=== PATIENT | female | born 1985 | race Asian ===

== ENCOUNTER 2016-07-07 15:09 | Emergency (ER) | payer OTHER ==
[~2016-07-07] VITALS: Ht 180.3 cm; Wt 81.6 kg
== END 2016-07-07 16:32 | disposition home or self-care (01) ==
LOC: ED 15:09
DX: M54.5 Low back pain (principal); G89.29 Other chronic pain
CPT/HCPCS: 99282

== ENCOUNTER 2016-07-13 16:33 | Emergency (ER) | payer OTHER ==
[~2016-07-13] VITALS: Ht 154.9 cm; Wt 81.6 kg
[2016-07-13 17:21] LABS: PLATELET COUNT 294 K/uL (152-353)
== END 2016-07-13 17:42 | disposition home or self-care (01) ==
LOC: ED 16:33
DX: J02.9 Acute pharyngitis, unspecified (principal)
CPT/HCPCS: 36415; 85027; 87081; 87804; 87880; 99283

== ENCOUNTER 2016-08-14 16:21 | Emergency (ER) | payer OTHER ==
[~2016-08-14] VITALS: Ht 154.9 cm; Wt 81.6 kg
== END 2016-08-14 16:55 | disposition home or self-care (01) ==
LOC: ED 16:21
DX: M25.512 Pain in left shoulder (principal); Z87.828 Personal history of other (healed) physical injury and trauma
CPT/HCPCS: 99282

== ENCOUNTER 2016-08-28 16:32 | Emergency (ER) | payer OTHER ==
[~2016-08-28] VITALS: Ht 154.9 cm; Wt 81.6 kg
== END 2016-08-28 16:57 | disposition home or self-care (01) ==
LOC: ED 16:32
DX: H92.01 Otalgia, right ear (principal); H60.591 Other noninfective acute otitis externa, right ear
CPT/HCPCS: 99281; 99282

== ENCOUNTER 2016-09-03 20:56 | Emergency (ER) | payer OTHER ==
[~2016-09-03] VITALS: Ht 154.9 cm; Wt 81.6 kg
== END 2016-09-03 23:00 | disposition home or self-care (01) ==
LOC: ED 20:56
DX: K08.89 Other specified disorders of teeth and supporting structures (principal)
CPT/HCPCS: 99282

== ENCOUNTER 2016-10-23 15:46 | Emergency (ER) | payer OTHER ==
[~2016-10-23] VITALS: Ht 154.9 cm; Wt 81.6 kg
== END 2016-10-23 16:50 | disposition home or self-care (01) ==
LOC: ED 15:46
DX: S46.911A Strain of unspecified muscle, fascia and tendon at shoulder and upper arm level, right arm, initial encounter (principal); X50.0XXA Overexertion from strenuous movement or load, initial encounter; Y92.69 Other specified industrial and construction area as the place of occurrence of the external cause
CPT/HCPCS: 99281

== ENCOUNTER 2016-11-04 04:39 | Emergency (ER) | payer OTHER ==
[~2016-11-04] VITALS: Ht 154.9 cm; Wt 81.6 kg
== END 2016-11-04 05:05 | disposition home or self-care (01) ==
LOC: ED 04:39
DX: R21 Rash and other nonspecific skin eruption (principal)
CPT/HCPCS: 99283

== ENCOUNTER 2020-07-18 20:16 | Emergency (ER) | payer OTHER ==
[~2020-07-18] VITALS: Ht 154.9 cm; Wt 83.9 kg
[2020-07-18 22:35] VITALS: BP 104/63; TEMP 98.2
== END 2020-07-18 22:35 | disposition home or self-care (01) ==
LOC: ED 20:16
PROC: 2W3MX1Z Immobilization of Left Lower Extremity using Splint (ICD-10-PCS; principal; 2020-07-18)
DX: M25.562 Pain in left knee (principal); W01.0XXA Fall on same level from slipping, tripping and stumbling without subsequent striking against object, initial encounter; Y92.218 Other school as the place of occurrence of the external cause
CPT/HCPCS: 96372; 99283; J1885